=== PATIENT | female | born 1970 | race Caucasian/White ===

== ENCOUNTER 2016-08-23 16:16 | Inpatient (IN) | payer OTHER ==
[~2016-08-23] VITALS: Ht 170.2 cm; Wt 132.4 kg
--- NOTE | 2016-08-23 18:10 | NUR ---
PATIENT MAGDY FROM [facility]. REPORT RECEIVED FROM NANO JIMÉNEZ FROM [place]. PATIENT ARRIVED WITH C/O DIZZINESS. ON ADMISSION WAS NOTED WITH HIGH BLOOD PRESSURE WITH HIGH BLOOD SUGARS. PATIENT ON ARRIVAL HERE BP 188/100. PT DENIES PAIN OR DISCOMFORT AT THIS TIME. NO S/S OF RESPIRATORY DISTRESS NOTED. IV SITE PATENT AND INTACT ON LEFT UPPER ARM #20. PT IS AAOX4. AMBULATORY WITH ASSIST. HX HTN AND NEW ONSET DM. ORIENTED PT TO CALL LIGHT AND HOSPITAL ENVIRONMENT. BED IN LOWEST POSITION. ALL NEEDS MET AT THIS TIME.
--- NOTE | 2016-08-23 19:25 | NUR ---
SBAR REPORT GIVEN TO NANO FALLON AT PT BEDSIDE. PT RESTING IN BED. BS CHECKED 302. NO S/S OF ACUTE DISTRESS.
--- NOTE | 2016-08-23 19:30 | NUR ---
RECEIVED REPORT FROM DAY SHIFT NURSE. PT FAMILY AT BEDSIDE. PT AOX4, RESTING IN BED, ABLE TO VERBALIZE NEEDS. PT DENIES CP, SOB OR S/S OF ACUTE DISTRESS. IV ACCESS ASYMPTOMATIC, PATENT AND INTACT. SALINE LOCKED. DISCUSSED AND REVIEWED PLAN OF CARE WITH PT. PT VERBALIZES UNDERSTANDING. SAFETY MEASURES ENSURED. CALL LIGHT WITHIN REACH. WILL CONTINUE TO MONITOR.
[2016-08-23 20:00] VITALS: BP 204/105
--- NOTE | 2016-08-23 20:10 | NUR ---
DR ROBERTS CALLED, RECEIVED ORDERS FOR CLONIDINE PRN FOR HIGH BP, SLIDING SCALE INSULIN PROTOCOL, AND TO CONTINUE HOME MEDS.
[2016-08-23] MEDS ORDERED: DEXTROSE 50% 50 ML SYR IVP PRN (20:50)
--- NOTE | 2016-08-23 21:10 | NUR ---
PT'S PICKED UP HOME MEDS OF AMLODIPINE 5MG PO QHS DAILY, BUT WERE 2012. PT REPORTS "I USED THEM MAYBE ONCE THIS MONTH." DR ROBERTS PAGED AND MADE AWARE OF PT'S MEDICATIONS. ORDERS RECEIVED FOR AMLODIPINE 10MG PO STAT TONIGHT AND ALSO SCHEDULED Q DAILY. ORDERS RECEIVED FOR DIABETIC DIET AND TYLENOL 500MG PRN Q6H.
[2016-08-23] MEDS ORDERED: ACETAMINOPHEN EXTRA STRENGTH 500 MG TAB PO PRN (21:30)
[2016-08-23] MEDS: BLOOD GLUCOSE MONITORING 1 DEV DEV FS SCH (21:53)
[2016-08-23] MEDS ORDERED: amLODIPine 5 MG TAB PO SCH (21:56)
[2016-08-23] MEDS: INSULIN LISPRO SLIDING SCALE 100 UNITS/ML VIAL SUBQ PRN (22:05)
[2016-08-23] MEDS: cloNIDine 0.1 MG TAB PO PRN (22:06)
--- NOTE | 2016-08-23 22:10 | NUR ---
MEDICATIONS ADMINISTERED ORDERED WITH EDUCATION, PT VERBALIZES UNDERSTANDING. PT TOLERATED MEDS WELL. CONDITION STABLE. ALL NEEDS MET. SAFETY MEASURES ENSURED. CALL LIGHT WITHIN REACH. WILL CONTINUE TO MONITOR.
[2016-08-24] VITALS: BP 151/82
--- NOTE | 2016-08-24 | NUR ---
PT RESTING IN BED. ALL NEEDS MET. SAFETY MEASURES ENSURED. CALL LIGHT WITHIN REACH. WILL CONTINUE TO MONITOR.
[2016-08-24] MEDS: cloNIDine 0.1 MG TAB PO PRN ×2 (03:46→08:45)
--- NOTE | 2016-08-24 03:47 | NUR ---
PT BP 159/91, CLONIDINE ADMINISTERED WITH EDUCATION ORDERED PER PARAMETERS. PT TOLERATED WELL. WILL CONTINUE TO MONITOR.
[2016-08-24 04:00] VITALS: BP 159/91
[2016-08-24] MEDS: BLOOD GLUCOSE MONITORING 1 DEV DEV FS SCH ×2 (06:16→11:37)
[2016-08-24] MEDS: INSULIN LISPRO SLIDING SCALE 100 UNITS/ML VIAL SUBQ PRN ×2 (06:24→12:16)
--- NOTE | 2016-08-24 06:55 | NUR ---
PATIENT HAS BEEN SCREENED AND CATEGORIZED HIGH NUTRITION RISK. PATIENT WILL BE SEEN WITHIN 1-2 DAYS OF ADMISSION. 08/23/16-08/24/16 NIKOLAS BLAS MS, RDN
--- NOTE | 2016-08-24 07:29 | NUR ---
RECEIVED REPORT FROM NIGHT NURSE. PT IS AAOX4, ON ROOM AIR, IV TO LEFT UPPER ARM 20G SALINE LOCK PATENT AND INTACT. SKIN INTACT. REVIEWED PLAN OF CARE WITH PT, PT VERBALIZED UNDERSTANDING. ALL PRECAUTIONS MET. ALL NEEDS MET. CALL LIGHT WITHIN REACH. WILL CONTINUE TO MONITOR.
--- NOTE | 2016-08-24 07:29 | NUR ---
ENDORSED PLAN OF CARE TO DAY SHIFT NURSE. CONDITION STABLE.
--- NOTE | 2016-08-24 07:42 | NUR ---
PATIENT WILL BE RESCREENED WITHIN 1-2 DAYS OF ADMISSION. NOT ENOUGH INFORMATION AVAILABLE AT THIS TIME. 08/24/16- NIKOLAS BLAS MS, RDN
[2016-08-24 08:00] VITALS: BP 189/107
--- NOTE | 2016-08-24 08:45 | NUR ---
DUE MEDICATIONS GIVEN. PT CURRENTLY VISITING WITH , NO S/S OF DISTRESS OR DISCOMFORT NOTED. ALL NEEDS MET. CALL LIGHT WITHIN REACH. WILL CONTINUE TO MONITOR.
[2016-08-24] MEDS ORDERED: amLODIPine 5 MG TAB PO SCH (09:00)
--- NOTE | 2016-08-24 11:30 | NUR ---
PT CURRENTLY RESTING IN BED. AT BEDSIDE. ALL NEEDS MET. CALL LIGHT WITHIN REACH. WILLCONTINUE TO MONITOR.
[2016-08-24 12:00] VITALS: BP 152/80
[2016-08-24] MEDS ORDERED: LISINOPRIL 20 MG TAB PO SCH (13:10)
--- NOTE | 2016-08-24 13:27 | NUR ---
LISINOPRIL GIVEN BP 149/91, HR 85.ALL NEEDS MET. CALL LIGHT WITHIN REACH. WILL CONTINUE TO MONITOR.
[2016-08-24] MEDS ORDERED: METFORMIN500 MG PO (13:33)
[2016-08-24] MEDS ORDERED: ACCU-CHEK FAST1 EAC1 MC (13:33)
[2016-08-24] MEDS ORDERED: GLIPIZIDE5 MG PO (13:33)
[2016-08-24] MEDS ORDERED: AMLODIPINE BESYL5 M1 PO (13:33)
[2016-08-24] MEDS ORDERED: ZESTRIL20 MG PO (13:33)
[2016-08-24] MEDS ORDERED: BLOOD GLUCOSE1 EAC3 MC (13:33)
--- NOTE | 2016-08-24 14:25 | NUR ---
DISCUSSED DISCHARGE PLAN WITH PT AND , BOTH VERBALIZED UNDERSTANDING. ALL NEEDS MET, CALL LIGHT WITHIN REACH.
--- NOTE | 2016-08-24 15:47 | NUR ---
PT SIGNED ALL DISCHARGE PAPERWORK, PRESCRIPTIONS/ EDUCATION GIVEN PT VERBALIZED UNDERSTANDING, FOLLOW UP INFORMATION GIVEN, IV REMOVED TIP INTACT, ALL PERSONAL BELONGINGS WITH PT.
--- NOTE | 2016-08-24 15:52 | NUR ---
PT WAS WALKED TO FRONT LOBBY IN STABLE CONDITION.
[2016-08-24] MEDS ORDERED: glipiZIDE 5 MG TAB PO SCH (16:30)
[2016-08-24] MEDS ORDERED: metFORMIN 500 MG TAB PO SCH (17:00)
--- NOTE | 2016-08-25 08:22 | NUR ---
RETRO FAXED H&P AND DISCHARGE SUMMARY TO [facility] [phone] PHONE JAYDON [phone]
[2016-08-25] MEDS ORDERED: LISINOPRIL 20 MG TAB PO SCH (09:00)
== END 2016-08-24 15:54 | disposition home or self-care (01) | DRG 199 ==
LOC: MTU 18:05
PROVIDERS: ADMIT Hospitalist; ATTEND Hospitalist
DX: I10 Essential (primary) hypertension (principal); Z68.42 Body mass index [BMI] 45.0-49.9, adult; E11.9 Type 2 diabetes mellitus without complications; E66.01 Morbid (severe) obesity due to excess calories